=== PATIENT | male | born 1980 | race Caucasian/White ===

== ENCOUNTER 2020-07-06 17:00 | Emergency (ER) | payer OTHER ==
[2020-07-06] MEDS ORDERED: Diphtheria,Pertussis(Acell),Tetanus Vaccine 0.5 ML Syringe IM ONE (18:23)
[2020-07-06] MEDS ORDERED: Lidocaine 1% 10 ML MDV INJECT ONE (18:23)
--- NOTE | 2020-07-06 18:28 | EDM.PDOC ---
ED HPI GENERAL MEDICAL PROBLEM - General Chief Complaint: Laceration Stated Complaint: HEAD LAC Time Seen by Provider: 07/06/20 18:12 Source of Information: Reports: Patient, RN Notes Reviewed History Limitations: Reports: No Limitations - History of Present Illness INITIAL COMMENTS - FREE TEXT/NARRATIVE: Patient is a 39-year-old male who presents to the ED for head laceration. 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 This resulted in a 2 cm linear laceration to the left front side of his scalp. He did not lose consciousness or get knocked out, he felt slightly dizzy at the time of injury along with some lightheadedness. He states he is feeling better now. He does not member the last tetanus vaccine that he had. Patient denies any other sick- like symptoms, fever/chills, cough/shortness of breath, nausea/vomiting/diarrhea. Frontal Head Pain Score (Numeric/FACES): 4 - Related Data Allergies Allergy/AdvReac Type Severity Reaction Status Date / Time No Known Allergies Allergy Verified 07/06/20 18:17 Home Meds: Home Meds . [No Known Home Meds] 07/06/20 [History] Past Medical History - Past Health History Medical/Surgical History: Denies Medical/Surgical History Social & Family History - Tobacco Use Tobacco Use Status *Q: Current Every Day Tobacco User Years of Tobacco use: 20 Packs/Tins Daily: 0.5 - Caffeine Use Caffeine Use: Reports: None - Recreational Drug Use Recreational Drug Use: No ED ROS GENERAL - Review of Systems Review Of Systems: Comprehensive ROS is negative, except as noted in HPI. ED EXAM, SKIN/RASH Exam: See Below Exam Limited By: No Limitations General Appearance: Alert, WD/WN, No Apparent Distress Respiratory/Chest: No Respiratory Distress, Lungs Clear, Normal Breath Sounds, No Accessory Muscle Use, Chest Non-Tender Cardiovascular: Normal Peripheral Pulses, Regular Rate, Rhythm, No Edema Extremities: Normal Inspection, Normal Capillary Refill Neurological: Alert, Oriented, Normal Cognition, No Motor/Sensory Deficits Psychiatric: Normal Affect, Normal Mood Skin: Warm, Dry, Normal Color, No Rash, Wound/Incision (2 cm linear laceration to the left frontal side of his scalp. Right near his hairline.) ED SKIN PROCEDURES - Laceration/Wound Repair Left Upper Face Appearance: Subcutaneous, Linear, Clean Distal NVT: Neuro & Vascular Intact, No Tendon Injury Anesthetic Type: Local Local Anesthesia - Lidocaine (Xylocaine): 1% Plain Local Anesthetic Volume: 2cc Skin Prep: Chlorhexidine (Hibiciens), Saline Exploration/Debridement/Repair: Wound Explored, In a Bloodless Field, Explored to Base, No Foreign Material Found Closed with: Aliyah (7 aliyah) Lac/Wound length In cm: 2 Sterile Dressing Applied: Nurse Tetanus Status Addressed: Yes Complications: No Course - Vital Signs Last Recorded V/S: Last Vital Signs Temp 98.2 F 07/06/20 18:11 Pulse 86 07/06/20 18:11 Resp 20 07/06/20 18:11 BP 138/97 H 07/06/20 18:11 Pulse Ox 97 07/06/20 18:11 - Orders/Labs/Meds Orders: Active Orders 24 hr Category Date Time Status Vaccines to be Administered [RC] PER UNIT ROUTINE Care 07/06/20 18:23 Ordered Meds: Medications Discontinued Medications Generic Name Dose Route Start Last Admin Trade Name Freq PRN Reason Stop Dose Admin Diphtheria/Tetanus/Acell Pertussis 0.5 ml 07/06/20 18:23 Boostrix IM 07/06/20 18:24 .ONCE ONE Lidocaine HCl 10 ml 07/06/20 18:23 Xylocaine 1% INJECT 07/06/20 18:24 ONETIME ONE Departure - Departure Time of Disposition: 18:29 Disposition: Home, Self-Care 01 Condition: Good Clinical Impression: Scalp laceration Qualifiers: Encounter type: initial encounter Qualified Code(s): S01.01XA - Laceration without foreign body of scalp, initial encounter - Discharge Information *PRESCRIPTION DRUG MONITORING PROGRAM REVIEWED*: No *COPY OF PRESCRIPTION DRUG MONITORING REPORT IN PATIENT ABIMAEL: No Instructions: Sutures, Aliyah, or Adhesive Wound Closure Referrals: PCP,None [Primary Care Provider] - Forms: ED Department Discharge Additional Instructions: You have been evaluated in the ED for your laceration. Aliyah will need to stay in for 5 to 7 days You may return to the ED or any clinic for removal. Please keep this area clean and dry, you may cleanse with regular soap and water. No vigorous scrubbing. Please try to avoid submerging the affected area in water for prolonged periods of time until the sutures are removed. Watch out for signs of infection like increased redness, swelling, pain at the laceration site, or if you should develop any fevers or chills. Please return to ED if your symptoms change or worsen. Sepsis Event Note (ED) - Evaluation Sepsis Screening Result: No Definite Risk - Focused Exam Vital Signs: Vital Signs Temp Pulse Resp BP Pulse Ox 07/06/20 18:11 98.2 F 86 20 138/97 H 97 - My Orders Last 24 Hours: My Active Orders 07/06/20 18:23 Vaccines to be Administered [RC] PER UNIT ROUTINE - Assessment/Plan Last 24 Hours: My Active Orders 07/06/20 18:23 Vaccines to be Administered [RC] PER UNIT ROUTINE
== END 2020-07-06 19:26 | disposition home or self-care (01) ==
LOC: JD.ED 17:00
DX: S01.01XA Laceration without foreign body of scalp, initial encounter (principal); F17.210 Nicotine dependence, cigarettes, uncomplicated; Z23 Encounter for immunization; W22.8XXA Striking against or struck by other objects, initial encounter
CPT/HCPCS: 12001; 90471; 90715; 99283; J2001

== ENCOUNTER 2020-07-17 22:55 | Emergency (ER) | payer BC, OTHER ==
--- NOTE | 2020-07-17 23:23 | EDM.PDOCBH ---
ED HPI GENERAL MEDICAL PROBLEM - General Chief Complaint: Drug or Alcohol Abuse Time Seen by Provider: 07/17/20 23:05 Source of Information: Reports: Patient History Limitations: Reports: Altered Mental Status (Confused, lethargic) - History of Present Illness INITIAL COMMENTS - FREE TEXT/NARRATIVE: Mr. Elena a pleasant 39-year-old gentleman who walked into our ED and slumped into the chair at admitting, essentially passing out. He reports that he took "quite a few" [id number] sleeping pills, perhaps about an hour ago, after having an argument with his . He states that he does not know why he took them, and denies doing such a thing in the past. He states that he also drank "a couple" of glasses of [employer]. At present, he complains of feeling "tired and cold". Flory MORGAN was able to contact the patient's , who confirmed that the patient has been drinking today, and that they got into an argument over infidelity. She reported that there were 2 remaining pills of Advil PM in a bottle, however, we do not know how full the bottle was previously. The patient's last saw him at 22:30. It appears that he drove himself to the ED. Here in the ED, the patient's initial BP is found to be elevated at 164/103, with tachycardia of 115 bpm. He is afebrile, saturating 96% on room air. The patient reports that he coughs on occasion, otherwise, he denies having a recent fever, chills, sore throat, ear pain, nasal or sinus congestion, dyspnea, chest pain, palpitations, nausea, vomiting, constipation, diarrhea, abdominal pain, urinary symptoms, recent weight gain or weight loss, recent bloody bowel movements or black bowel movements, recent joint aches, headaches, or rashes. The patient does not have a PCP. He has not received an influenza vaccine this season, and declined an offer to receive one here in the ED. - Related Data Allergies Allergy/AdvReac Type Severity Reaction Status Date / Time No Known Allergies Allergy Verified 07/06/20 18:17 Home Meds: Home Meds . [No Known Home Meds] 07/06/20 [History] Past Medical History - Past Surgical History HEENT Surgical History: Reports: Oral Surgery (dental extractions) Social & Family History - Tobacco Use Tobacco Use Status *Q: Current Every Day Tobacco User Years of Tobacco use: 21 Packs/Tins Daily: 1 - Caffeine Use Caffeine Use: Reports: Coffee, Energy Drinks, Soda - Alcohol Use Alcohol Use History: Yes Alcohol Use Frequency: Socially (occasionally to excess) - Recreational Drug Use Recreational Drug Use: Yes Drug Use in Last 12 Months: No Recreational Drug Type: Reports: Marijuana/Hashish (last smoked in HS) - Living Situation & Occupation Living situation: Reports: , with Spouse, with Family (6 kids) Occupation: Employed ([employer]) ED ROS GENERAL - Review of Systems Review Of Systems: Comprehensive ROS is negative, except as noted in HPI. ED EXAM, BEHAVIORAL HEALTH - Physical Exam Exam: See Below Exam Limited By: No Limitations General Appearance: WD/WN, No Apparent Distress, Lethargic (Easily aroused, but speaks slowly and is confused) Eye Exam: Bilateral Eye: EOMI, Normal Inspection, PERRL Ears: Normal External Exam, Hearing Grossly Normal Nose: Normal Inspection Throat/Mouth: Normal Inspection, Normal Lips, Normal Voice, No Airway Compromise Head: Atraumatic, Normocephalic Neck: Normal Inspection, Full Range of Motion Respiratory/Chest: No Respiratory Distress, Lungs Clear, Normal Breath Sounds, No Accessory Muscle Use Cardiovascular: Normal Peripheral Pulses, Regular Rate, Rhythm, No Edema, No Gallop, No JVD, No Murmur, No Rub GI/Abdominal: Normal Bowel Sounds, Soft, Non-Tender, No Organomegaly, No Distention, No Abnormal Bruit, No Mass Back Exam: Normal Inspection, Full Range of Motion, NT Extremities: Normal Inspection, Normal Range of Motion, Non-Tender, Normal Capillary Refill, No Pedal Edema Neurological: CN II-XII Intact, No Motor/Sensory Deficits, Memory Loss Recent Events Skin Exam: Dry, Intact, Normal color, No rash, Cool (hands) #1 Interpretation EKG Date: 07/17/20 Time: 23:30 Rhythm: Other (Sinus tachycardia) Rate (Beats/Min): 105 [place]: Normal P-Wave: Present QRS: Normal ST-T: Normal QT: Prolonged (QTc 506 ms) Comparison: NA - No Prior EKG COURSE, BEHAVIORAL HEALTH COMP - Course Vital Signs: Last Vital Signs Temp 36.2 C 07/17/20 23:00 Pulse 82 07/18/20 06:11 Resp 16 07/18/20 06:11 BP 138/96 H 07/18/20 06:11 Pulse Ox 99 07/18/20 06:11 Orders, Labs, Meds: Active Orders 24 hr Category Date Time Status EKG Documentation Completion [RC] STAT Care 07/17/20 23:18 Active Sodium Chloride 0.9% [Normal Saline] 1,000 ml Med 07/17/20 23:30 Active IV ASDIRECTED Medication Orders Sodium Chloride (Normal Saline) 1,000 mls @ 150 mls/hr IV ASDIRECTED JEANETTE Last Admin: 07/17/20 23:35 Dose: 150 mls/hr Documented by: RAY Laboratory Tests 07/17/20 07/17/20 07/17/20 Range/Units 23:00 23:00 23:00 WBC 13.01 H (4.23-9.07) K/mm3 RBC 5.18 (4.63-6.08) M/mm3 Hgb 16.7 (13.7-17.5) gm/dl Hct 48.2 (40.1-51.0) % MCV 93.1 H (79.0-92.2) fl MCH 32.2 (25.7-32.2) pg MCHC 34.6 (32.2-35.5) g/dl RDW Std Deviation 44.0 H (35.1-43.9) fL Plt Count 248 (163-337) K/mm3 MPV 10.0 (9.4-12.3) fl Neutrophils % (Manual) 75 H (40-60) % Band Neutrophils % 3 (0-10) % Lymphocytes % (Manual) 16 L (20-40) % Atypical Lymphs % 0 % Monocytes % (Manual) 4 (2-10) % Eosinophils % (Manual) 1 (0.8-7.0) % Basophils % (Manual) 1 (0.2-1.2) Platelet Estimate Adequate Plt Morphology Comment Normal RBC Morph Comment Normal Sodium 140 (136-145) mEq/L Potassium 3.5 (3.5-5.1) mEq/L Chloride 104 (98-107) mEq/L Carbon Dioxide 26 (21-32) mEq/L Anion Gap 13.5 (5-15) BUN 16 (7-18) mg/dL Creatinine 1.3 (0.7-1.3) mg/dL Est Cr Clr Drug Dosing 80.33 mL/min Estimated GFR (MDRD) > 60 (>60) mL/min BUN/Creatinine Ratio 12.3 L (14-18) Glucose 110 H (74-106) mg/dL Calcium 9.2 (8.5-10.1) mg/dL Magnesium 2.2 (1.8-2.4) mg/dl Total Bilirubin 0.3 (0.2-1.0) mg/dL AST 19 (15-37) U/L ALT 38 (16-63) U/L Alkaline Phosphatase 93 (46-116) U/L Total Protein 7.7 (6.4-8.2) g/dl Albumin 4.0 (3.4-5.0) g/dl Globulin 3.7 gm/dL Albumin/Globulin Ratio 1.1 (1-2) TSH 3rd Generation 2.595 (0.358-3.74) uIU/mL Salicylates 5.1 (2.8-20) mg/dL Urine Opiates Screen (TUTHIS=233) Ur Buprenorphine Scrn (CUTOFF=10) Ur Oxycodone Screen (ZCD8BC=264) Urine Methadone Screen (DYY6XX=049) Ur Propoxyphene Screen (UIRRQK=369) Acetaminophen 0 L (10-30) ug/mL Ur Barbiturates Screen (BLUIMY=633) Ur Tricyclics Screen (JKIPVW=723) Ur Phencyclidine Scrn (CUTOFF=25) Ur Amphetamine Screen (NBTWFS=948) U Methamphetamines Scrn (JKIOKI=849) U Benzodiazepines Scrn (VOQOMF=889) U Cocaine Metab Screen (HFLCRL=422) U Marijuana (THC) Screen (CUTOFF=50) Ethyl Alcohol 0.05 (0.00) gm% SARS-CoV-2 RNA (SANCHEZ) (NEGATIVE) 07/18/20 07/18/20 07/18/20 Range/Units 00:05 00:15 02:04 WBC (4.23-9.07) K/mm3 RBC (4.63-6.08) M/mm3 Hgb (13.7-17.5) gm/dl Hct (40.1-51.0) % MCV (79.0-92.2) fl MCH (25.7-32.2) pg MCHC (32.2-35.5) g/dl RDW Std Deviation (35.1-43.9) fL Plt Count (163-337) K/mm3 MPV (9.4-12.3) fl Neutrophils % (Manual) (40-60) % Band Neutrophils % (0-10) % Lymphocytes % (Manual) (20-40) % Atypical Lymphs % % Monocytes % (Manual) (2-10) % Eosinophils % (Manual) (0.8-7.0) % Basophils % (Manual) (0.2-1.2) Platelet Estimate Plt Morphology Comment RBC Morph Comment Sodium (136-145) mEq/L Potassium (3.5-5.1) mEq/L Chloride (98-107) mEq/L Carbon Dioxide (21-32) mEq/L Anion Gap (5-15) BUN (7-18) mg/dL Creatinine (0.7-1.3) mg/dL Est Cr Clr Drug Dosing mL/min Estimated GFR (MDRD) (>60) mL/min BUN/Creatinine Ratio (14-18) Glucose (74-106) mg/dL Calcium (8.5-10.1) mg/dL Magnesium (1.8-2.4) mg/dl Total Bilirubin (0.2-1.0) mg/dL AST (15-37) U/L ALT (16-63) U/L Alkaline Phosphatase (46-116) U/L Total Protein (6.4-8.2) g/dl Albumin (3.4-5.0) g/dl Globulin gm/dL Albumin/Globulin Ratio (1-2) TSH 3rd Generation (0.358-3.74) uIU/mL Salicylates (2.8-20) mg/dL Urine Opiates Screen Negative (SOBBGX=327) Ur Buprenorphine Scrn Negative (CUTOFF=10) Ur Oxycodone Screen Negative (USO1OO=879) Urine Methadone Screen Negative (JHX0DP=301) Ur Propoxyphene Screen Negative (DSQCXX=102) Acetaminophen 0 L (10-30) ug/mL Ur Barbiturates Screen Negative (STSAKK=181) Ur Tricyclics Screen Negative (MUHWRL=694) Ur Phencyclidine Scrn Negative (CUTOFF=25) Ur Amphetamine Screen Negative (GEYVMR=752) U Methamphetamines Scrn Negative (NRCUWC=638) U Benzodiazepines Scrn Negative (JCCITO=092) U Cocaine Metab Screen Negative (DCNJAK=706) U Marijuana (THC) Screen Negative (CUTOFF=50) Ethyl Alcohol (0.00) gm% SARS-CoV-2 RNA (SANCHEZ) Negative (NEGATIVE) 07/18/20 Range/Units 02:04 WBC (4.23-9.07) K/mm3 RBC (4.63-6.08) M/mm3 Hgb (13.7-17.5) gm/dl Hct (40.1-51.0) % MCV (79.0-92.2) fl MCH (25.7-32.2) pg MCHC (32.2-35.5) g/dl RDW Std Deviation (35.1-43.9) fL Plt Count (163-337) K/mm3 MPV (9.4-12.3) fl Neutrophils % (Manual) (40-60) % Band Neutrophils % (0-10) % Lymphocytes % (Manual) (20-40) % Atypical Lymphs % % Monocytes % (Manual) (2-10) % Eosinophils % (Manual) (0.8-7.0) % Basophils % (Manual) (0.2-1.2) Platelet Estimate Plt Morphology Comment RBC Morph Comment Sodium (136-145) mEq/L Potassium (3.5-5.1) mEq/L Chloride (98-107) mEq/L Carbon Dioxide (21-32) mEq/L Anion Gap (5-15) BUN (7-18) mg/dL Creatinine (0.7-1.3) mg/dL Est Cr Clr Drug Dosing mL/min Estimated GFR (MDRD) (>60) mL/min BUN/Creatinine Ratio (14-18) Glucose (74-106) mg/dL Calcium (8.5-10.1) mg/dL Magnesium (1.8-2.4) mg/dl Total Bilirubin (0.2-1.0) mg/dL AST (15-37) U/L ALT (16-63) U/L Alkaline Phosphatase (46-116) U/L Total Protein (6.4-8.2) g/dl Albumin (3.4-5.0) g/dl Globulin gm/dL Albumin/Globulin Ratio (1-2) TSH 3rd Generation (0.358-3.74) uIU/mL Salicylates 4.4 (2.8-20) mg/dL Urine Opiates Screen (BUHRBF=445) Ur Buprenorphine Scrn (CUTOFF=10) Ur Oxycodone Screen (FUP3TB=577) Urine Methadone Screen (BOG5EA=777) Ur Propoxyphene Screen (VFDXDR=411) Acetaminophen (10-30) ug/mL Ur Barbiturates Screen (NNVNHT=719) Ur Tricyclics Screen (SUKLWM=426) Ur Phencyclidine Scrn (CUTOFF=25) Ur Amphetamine Screen (BKXQDY=935) U Methamphetamines Scrn (PTKTMM=713) U Benzodiazepines Scrn (UPYLRJ=215) U Cocaine Metab Screen (IHKLNP=013) U Marijuana (THC) Screen (CUTOFF=50) Ethyl Alcohol (0.00) gm% SARS-CoV-2 RNA (SANCHEZ) (NEGATIVE) Medications Generic Name Dose Route Start Last Admin Trade Name Freq PRN Reason Stop Dose Admin Sodium Chloride 1,000 mls @ 150 mls/hr 07/17/20 23:30 07/17/20 23:35 Normal Saline IV 150 mls/hr ASDIRECTED JEANETTE Administration Medical Clearance: 07/17/20 23:20 As above, the patient appears to have taken an overdose of sleeping pills, likely diphenhydramine, but also possibly acetaminophen, along with alcohol, perhaps an hour ago, although the timing is not yet clear. He denies ingesting any other drugs. We think he walked here to the ED. He states that he is "tired and cold", and while he has no focal neurologic deficits, he is confused and a poor historian. His initial BP is found to be elevated, and he is tachycardic. I have ordered a work-up that includes several blood tests, a urine drug screen, an ECG, and, because he will need to either be admitted or transferred, a swab for the SARS-CoV-2 virus. In the meantime, the patient will be given IV fluid. 07/18/20 00:46 The patient's CBC is remarkable for mild leukocytosis of 13.01 with 3% bandemia, and the remainder of his CBC being unremarkable. His CMP is remarkable for slight hyperglycemia of 110, and is otherwise unremarkable. His magnesium level is within normal limits at 2.2. His TSH is within normal limits at 2.595. His salicylate level is within normal limits at 5.1. His acetaminophen level is 0. His EtOH level is mildly elevated at 0.05. His urine drug screen is completely negative. His swab for the SARS-CoV-2 virus has not yet resulted. I have ordered a repeat salicylate level and acetaminophen level to be drawn at 02:00. 07/18/20 03:23 The patient's swab for the SARS-CoV-2 virus has returned negative. His repeat salicylate level is within normal limits at 4.4. His repeat acetaminophen level is still 0. Without a significantly elevated salicylate level, the patient likely took only a couple Advil PMs. We will let him sleep until the morning. 07/18/20 06:41 The patient has been sleeping soundly all night. I woke him. He does not recall how he got here (his truck is in the ED parking lot). I will discharge him home. Departure - Departure Time of Disposition: 06:42 Disposition: Home, Self-Care 01 Condition: Good Clinical Impression: Intoxication by drug - Discharge Information *PRESCRIPTION DRUG MONITORING PROGRAM REVIEWED*: Not Applicable *COPY OF PRESCRIPTION DRUG MONITORING REPORT IN PATIENT ABIMAEL: Not Applicable Referrals: PCP,None [Primary Care Provider] - Forms: ED Department Discharge Additional Instructions: You were seen in the emergency room after drinking alcohol and taking an unknown number of [id number] Advil PM pills. Work-up in the ER included numerous blood tests, a urine drug screen, a swab for the SARS-CoV-2 virus, and an ECG. Your work-up found your alcohol level to be modestly elevated at 0.05. The remainder of your work-up was unremarkable. Based on your blood test, we estimate that you did not take a significant number of Advil PM pills. You were allowed to sleep overnight in the ER. If any other problems, please do not hesitate to return to the ER. Sepsis Event Note (ED) - Evaluation Sepsis Screening Result: No Definite Risk - Focused Exam Vital Signs: Vital Signs Temp Pulse Resp BP Pulse Ox 07/18/20 06:11 82 16 138/96 H 99 07/18/20 03:29 78 16 134/75 95 07/18/20 02:31 95 16 132/92 H 07/18/20 00:24 103 H 16 149/99 H 95 07/17/20 23:00 36.2 C 115 H 20 164/103 H 96 - My Orders Last 24 Hours: My Active Orders 07/17/20 23:18 EKG Documentation Completion [RC] STAT 07/17/20 23:30 Sodium Chloride 0.9% [Normal Saline] 1,000 ml IV ASDIRECTED - Assessment/Plan Last 24 Hours: My Active Orders 07/17/20 23:18 EKG Documentation Completion [RC] STAT 07/17/20 23:30 Sodium Chloride 0.9% [Normal Saline] 1,000 ml IV ASDIRECTED
[2020-07-17] MEDS ORDERED: Sodium Chloride 0.9% 1,000 ML IV SCH (23:30)
[2020-07-17 23:51] LABS: ACETAMINOPHEN 0 ug/mL (10-30)
== END 2020-07-18 07:06 | disposition home or self-care (01) ==
LOC: JD.ED 22:55
DX: R41.82 Altered mental status, unspecified (principal); T39.315A Adverse effect of propionic acid derivatives, initial encounter; F17.210 Nicotine dependence, cigarettes, uncomplicated; R00.0 Tachycardia, unspecified; Z20.822 Contact with and (suspected) exposure to COVID-19
CPT/HCPCS: 36415; 80053; 80143; 80179; 80306; 80307; 83735; 84443; 85007; 85027; 87635; 93005; 99284; J7030; 93010; U0002

== ENCOUNTER 2021-03-11 18:17 | Emergency (ER) | payer BC ==
[2021-03-11] MEDS ORDERED: Ondansetron 4 MG/2 ML SDV IVPUSH ONE (18:46)
[2021-03-11] MEDS ORDERED: Sodium Chloride 0.9% 1,000 ML IV SCH (19:00)
--- NOTE | 2021-03-11 19:06 | EDM.PDOC ---
ED HPI GENERAL MEDICAL PROBLEM - General Chief Complaint: Abdominal Pain Stated Complaint: L SIDE ABDOMINAL PAIN Time Seen by Provider: 03/11/21 18:46 Source of Information: Reports: Patient, RN Notes Reviewed History Limitations: Reports: No Limitations - History of Present Illness INITIAL COMMENTS - FREE TEXT/NARRATIVE: Patient is a 40-year-old male who presents to the ER for evaluation of his left lower quadrant abdominal pain. Patient notes he has had no prior abdominal surgeries. States this has been present for the last 3 days or so, it seems to be intermittent, but worsened this morning at around 3 AM. He took 2 tablets of ibuprofen at that time, and states he took the edge off but did not really seem to make the pain relent much at all. He denying any fevers or chills, cough or shortness of breath, nausea/vomiting/diarrhea. States that his last bowel movement was yesterday morning, but and also notes that he did not really eat much yesterday, he did try to take some MiraLAX this morning, along with increase his fluid hydration and has not had a bowel movement since. States that he is having no urinary symptoms as well. He has no regular care provider. States that he last ate roughly 1 hour ago. Patient states that movement seems to make the pain worse, and when he stands straight up this seems to make it worse. Left Abdominal Pain Score (Numeric/FACES): 5 - Related Data Allergies Allergy/AdvReac Type Severity Reaction Status Date / Time No Known Allergies Allergy Verified 03/11/21 18:26 Home Meds: Home Meds Amoxicillin/Clavulanate K [Augmentin 875-125 MG] 1 tab PO BID #14 tablet 03/11/21 [Rx] buPROPion HCL [Bupropion Xl] 150 mg PO DAILY 03/11/21 [History] Past Medical History - Past Health History Medical/Surgical History: Denies Medical/Surgical History - Past Surgical History HEENT Surgical History: Reports: Oral Surgery Social & Family History - Tobacco Use Tobacco Use Status *Q: Current Every Day Tobacco User Years of Tobacco use: 20 Packs/Tins Daily: 1 - Caffeine Use Caffeine Use: Reports: None - Recreational Drug Use Recreational Drug Use: No - Living Situation & Occupation Living situation: Reports: , with Spouse, with Family (6 kids) Occupation: Employed (Formerly [employer]) ED ROS GENERAL - Review of Systems Review Of Systems: Comprehensive ROS is negative, except as noted in HPI. ED EXAM, GI/ABD - Physical Exam Exam: See Below Exam Limited By: No Limitations General Appearance: Alert, WD/WN, No Apparent Distress Respiratory/Chest: No Respiratory Distress, Lungs Clear, Normal Breath Sounds, No Accessory Muscle Use, Chest Non-Tender Cardiovascular: Normal Peripheral Pulses, Regular Rate, Rhythm, No Edema GI/Abdominal Exam: Normal Bowel Sounds, Soft, No Distention, No Mass, Tender (LLQ pain) Extremities: Normal Inspection, Normal Capillary Refill Neurological: Alert, Oriented, Normal Cognition, No Motor/Sensory Deficits Psychiatric: Normal Affect, Normal Mood Skin Exam: Warm, Dry, Intact, Normal Color, No Rash Course - Vital Signs Last Recorded V/S: Last Vital Signs Temp 97.3 F 03/11/21 18:25 Pulse 92 03/11/21 18:25 Resp 18 03/11/21 18:25 BP 147/78 H 03/11/21 18:25 Pulse Ox 94 L 03/11/21 18:25 - Orders/Labs/Meds Orders: Active Orders 24 hr Category Date Time Status Peripheral IV Care [RC] . DIRECTED Care 03/11/21 18:46 Ordered Abdomen Pelvis w Cont [CT] Stat Exams 03/11/21 18:46 Ordered UA W/MICROSCOPIC [URIN] Stat Lab 03/11/21 18:46 Ordered Sodium Chloride 0.9% [Normal Saline] 1,000 ml Med 03/11/21 19:00 Ordered IV ASDIRECTED Sodium Chloride 0.9% [Saline Flush] Med 03/11/21 18:46 Ordered 10 ml FLUSH ASDIRECTED PRN Peripheral IV Insertion Adult [OM.PC] Stat Oth 03/11/21 18:46 Ordered Medication Orders Sodium Chloride (Normal Saline) 1,000 mls @ 999 mls/hr IV ASDIRECTED JEANETTE Last Admin: 03/11/21 19:11 Dose: 999 mls/hr Documented by: ARMANI Sodium Chloride (Sodium Chloride 0.9% 10 Ml Syringe) 10 ml FLUSH ASDIRECTED PRN PRN Reason: Keep Vein Open Last Admin: 03/11/21 20:24 Dose: 10 ml Documented by: Admin: 03/11/21 19:11 Dose: 10 ml Documented by: ARMANI Labs: Laboratory Tests 03/11/21 03/11/21 Range/Units 18:35 18:35 WBC 10.79 H (4.23-9.07) K/mm3 RBC 4.98 (4.63-6.08) M/mm3 Hgb 16.2 (13.7-17.5) gm/dl Hct 46.1 (40.1-51.0) % MCV 92.6 H (79.0-92.2) fl MCH 32.5 H (25.7-32.2) pg MCHC 35.1 (32.2-35.5) g/dl RDW Std Deviation 45.0 H (35.1-43.9) fL Plt Count 225 (163-337) K/mm3 MPV 9.9 (9.4-12.3) fl Neut % (Auto) 70.0 H (34.0-67.9) % Lymph % (Auto) 20.9 L (21.8-53.1) % [place] % (Auto) 6.5 (5.3-12.2) % Eos % (Auto) 2.0 (0.8-7.0) Baso % (Auto) 0.3 (0.1-1.2) % Neut # (Auto) 7.55 H (1.78-5.38) K/mm3 Lymph # (Auto) 2.26 (1.32-3.57) K/mm3 [place] # (Auto) 0.70 (0.30-0.82) K/mm3 Eos # (Auto) 0.22 (0.04-0.54) K/mm3 Baso # (Auto) 0.03 (0.01-0.08) K/mm3 Sodium 141 (136-145) mEq/L Potassium 4.0 (3.5-5.1) mEq/L Chloride 105 (98-107) mEq/L Carbon Dioxide 28 (21-32) mEq/L Anion Gap 12.0 (5-15) BUN 16 (7-18) mg/dL Creatinine 1.3 (0.7-1.3) mg/dL Est Cr Clr Drug Dosing 69.53 mL/min Estimated GFR (MDRD) > 60 (>60) mL/min BUN/Creatinine Ratio 12.3 L (14-18) Glucose 142 H (70-99) mg/dL Calcium 8.7 (8.5-10.1) mg/dL Total Bilirubin 0.6 (0.2-1.0) mg/dL AST 18 (15-37) U/L ALT 38 (16-63) U/L Alkaline Phosphatase 76 (46-116) U/L C-Reactive Protein <0.2 (<1.0) mg/dL Total Protein 7.2 (6.4-8.2) g/dl Albumin 3.9 (3.4-5.0) g/dl Globulin 3.3 gm/dL Albumin/Globulin Ratio 1.2 (1-2) Lipase 85 (73-393) U/L Meds: Medications Generic Name Dose Route Start Last Admin Trade Name Freq PRN Reason Stop Dose Admin Sodium Chloride 1,000 mls @ 999 mls/hr 03/11/21 19:00 03/11/21 19:11 Normal Saline IV 999 mls/hr ASDIRECTED JEANETTE Administration Sodium Chloride 10 ml 03/11/21 18:46 03/11/21 20:24 Sodium Chloride 0.9% 10 Ml Syringe FLUSH 10 ml ASDIRECTED PRN Administration Keep Vein Open Discontinued Medications Generic Name Dose Route Start Last Admin Trade Name Freq PRN Reason Stop Dose Admin Diatrizoate Meglum/Diatrizoate Sod 120 ml 03/11/21 19:56 03/11/21 20:24 Diatrizoate Meglumine/Diatrizoate Sodium 37% 120 Ml Bottle PO 03/11/21 19:57 120 ml ONETIME ONE Administration Hydromorphone HCl 0.5 mg 03/11/21 19:46 03/11/21 20:05 Hydromorphone 0.5 Mg/0.5 Ml Syringe IVPUSH 03/11/21 19:47 0.5 mg ONETIME ONE Administration Iopamidol 50 ml 03/11/21 19:56 03/11/21 20:23 Iopamidol 612 Mg/Ml 50 Ml Sdv IVPUSH 03/11/21 19:57 50 ml ONETIME ONE Administration Iopamidol 100 ml 03/11/21 19:56 03/11/21 20:23 Iopamidol 612 Mg/Ml 100 Ml Bottle IVPUSH 03/11/21 19:57 100 ml ONETIME ONE Administration Ondansetron HCl 4 mg 03/11/21 18:46 03/11/21 19:11 Ondansetron 4 Mg/2 Ml Sdv IVPUSH 03/11/21 18:47 4 mg ONETIME ONE Administration Sodium Chloride 10 ml 03/11/21 19:56 Sodium Chloride 0.9% 10 Ml Sdv FLUSH 03/11/21 19:57 ONETIME ONE - Re-Assessments/Exams Free Text/Narrative Re-Assessment/Exam: 03/11/21 19:06 Patient presents to the ER for his abdominal discomfort, we will go ahead and get abdomen pelvis CT with IV and oral contrast, we will get some baseline labs, and give him some Zofran and fluids initially. Patient was offered pain medication but declined at this time. 03/11/21 21:09 Laboratory evaluation is essentially unremarkable, CT does demonstrate circumferential rectal wall thickening, clinical correlation is recommended. He does have some stool within his abdomen, consistent with constipation, the oral contrast should provide a laxative effect, I will have him follow-up with Dr. Ibarra, next week for ongoing management. We will go ahead and give him her clinic number so he can make an appointment for evaluation, and hopefully colonoscopy. Departure - Departure Time of Disposition: 21:11 Disposition: Home, Self-Care 01 Condition: Good Clinical Impression: Left lower quadrant abdominal pain - Discharge Information *PRESCRIPTION DRUG MONITORING PROGRAM REVIEWED*: No *COPY OF PRESCRIPTION DRUG MONITORING REPORT IN PATIENT ABIMAEL: No Prescriptions: Amoxicillin/Clavulanate K [Augmentin 875-125 MG] 1 tab PO BID #14 tablet Instructions: Abdominal Pain, Adult, [id number] Referrals: Margot Reyes MD [Physician] - 1 Week (Please call Sunday or Sunday for clinic appointment for further evaluation of rectal wall thickening.) Forms: ED Department Discharge Additional Instructions: You were evaluated in the ER today for your left lower quadrant abdominal pain. Your CT demonstrated some circumferential bowel wall thickening, that will need further investigation by colonoscopy. You have been referred to general surgeon, Dr. Ibarra in the [facility] for ongoing management of this. Please call [phone], on Sunday morning, to obtain an appointment to see her in clinic for further evaluation. In the meantime, you did have quite a bit of stool throughout your colon as well, and the oral contrast should provide somewhat of a laxative effect. You have been started on oral antibiotics, Augmentin for suspected bacterial infection, this was recommended by general surgeon, Dr. Ibarra. This medication was electronically sent to the [place] [facility] [employer]. Do not hesitate to return to the ER at any time if your symptoms should change or worsen. This would include fever, worsening pain, or any sort of nausea/vomiting/diarrhea. Sepsis Event Note (ED) - Focused Exam Vital Signs: Vital Signs Temp Pulse Resp BP Pulse Ox 03/11/21 18:25 97.3 F 92 18 147/78 H 94 L - My Orders Last 24 Hours: My Active Orders 03/11/21 18:46 Peripheral IV Care [RC] . DIRECTED Abdomen Pelvis w Cont [CT] Stat UA W/MICROSCOPIC [URIN] Stat Sodium Chloride 0.9% [Saline Flush] 10 ml FLUSH ASDIRECTED PRN Peripheral IV Insertion Adult [OM.PC] Stat 03/11/21 19:00 Sodium Chloride 0.9% [Normal Saline] 1,000 ml IV ASDIRECTED - Assessment/Plan Last 24 Hours: My Active Orders 03/11/21 18:46 Peripheral IV Care [RC] . DIRECTED Abdomen Pelvis w Cont [CT] Stat UA W/MICROSCOPIC [URIN] Stat Sodium Chloride 0.9% [Saline Flush] 10 ml FLUSH ASDIRECTED PRN Peripheral IV Insertion Adult [OM.PC] Stat 03/11/21 19:00 Sodium Chloride 0.9% [Normal Saline] 1,000 ml IV ASDIRECTED
[2021-03-11] MEDS: Sodium Chloride 0.9% 10 ML Syringe FLUSH PRN ×2 (19:11→20:24)
[2021-03-11] MEDS ORDERED: HYDROmorphone 0.5 MG/0.5 ML Syringe IVPUSH ONE (19:46)
[2021-03-11] MEDS ORDERED: Iopamidol 612 MG/ML 50 ML SDV IVPUSH ONE (19:56)
[2021-03-11] MEDS ORDERED: Iopamidol 612 MG/ML 100 ML Bottle IVPUSH ONE (19:56)
[2021-03-11] MEDS ORDERED: Diatrizoate Meglumine/Diatrizoate Sodium 37% 120 ML Bottle PO ONE (19:56)
[2021-03-11] MEDS ORDERED: Sodium Chloride 0.9% 10 ML SDV FLUSH ONE (19:56)
--- NOTE | 2021-03-13 08:53 | CT ---
CT abdomen and pelvis Technique: Multiple axial sections were obtained from above the dome of the diaphragm inferiorly through the pubic symphysis. Intravenous and oral contrast were utilized. Delayed images were then obtained through the bladder. Reconstructed coronal and sagittal images were obtained. Comparison: No prior abdominal imaging is available. Findings: Visualized lung bases show mild dependent atelectasis. Liver contains no focal parenchymal abnormality. Spleen size is normal. Adrenal glands show no nodule. Pancreas shows no discrete abnormality. Gallbladder contains no calcified gallstones. Kidneys show symmetric contrast enhancement without hydronephrosis or mass. Delayed images show contrast within the distal ureters and the bladder. Abdominal aorta shows no aneurysm. No retroperitoneal adenopathy or mesenteric abnormalities are seen. Appendix is seen which is normal. No pelvic mass or adenopathy is appreciated. Rectal wall shows diffuse thickening. No other bowel abnormality is appreciated. Bone window settings were reviewed which show disc space narrowing and vacuum phenomena within the L5-S1 disc. No acute osseous abnormality is appreciated. Impression: 1. Wall thickening within the rectum. Please correlate clinically. 2. Other incidental findings as noted above. Diagnostic code #3 I agree with preliminary report from [facility], finalized on 03/11/21, 10:04 PM CDT, code 1
== END 2021-03-11 21:45 | disposition home or self-care (01) ==
LOC: JD.ED 18:17
DX: R10.32 Left lower quadrant pain (principal); Z72.0 Tobacco use
CPT/HCPCS: 36415; 74177; 80053; 83690; 85025; 86140; 96374; 96375; 99284; J1170; J2405; J7030; Q9963; Q9967

== ENCOUNTER 2021-10-03 12:43 | Emergency (ER) | payer BC ==
[2021-10-03] MEDS ORDERED: Sodium Chloride 0.9% 10 ML Syringe FLUSH PRN (13:16)
[2021-10-03] MEDS ORDERED: Sodium Chloride 0.9% 1,000 ML IV SCH (13:30)
== END 2021-10-03 16:00 | disposition home or self-care (01) ==
LOC: JD.ED 12:43
DX: R07.89 Other chest pain (principal); R55 Syncope and collapse; Z72.0 Tobacco use
CPT/HCPCS: 36415; 71045; 80053; 84484; 85025; 93005; 99285; J7030; 93010

== ENCOUNTER 2022-01-09 17:13 | Emergency (ER) | payer BC ==
[2022-01-09] MEDS ORDERED: Lidocaine 1% 10 ML MDV INJECT ONE (18:30)
== END 2022-01-09 19:45 | disposition home or self-care (01) ==
LOC: JD.ED 17:13
DX: S51.811A Laceration without foreign body of right forearm, initial encounter (principal); F17.210 Nicotine dependence, cigarettes, uncomplicated; W26.8XXA Contact with other sharp object(s), not elsewhere classified, initial encounter; Y99.0 Civilian activity done for income or pay
CPT/HCPCS: 12001; 99282

== ENCOUNTER 2022-05-11 11:42 | Emergency (ER) | payer OTHER, BC ==
[2022-05-11] MEDS ORDERED: Acetaminophen 325 MG Tab PO ONE (11:59)
[2022-05-11] MEDS ORDERED: Lidocaine 1% 10 ML MDV INJECT ONE (12:54)
== END 2022-05-11 13:36 | disposition home or self-care (01) ==
LOC: JD.ED 11:42
DX: S01.81XA Laceration without foreign body of other part of head, initial encounter (principal); W22.09XA Striking against other stationary object, initial encounter; Y99.0 Civilian activity done for income or pay
CPT/HCPCS: 12011; 70450; 99283; A9270; 99282

== ENCOUNTER 2024-03-28 03:45 | Emergency (ER) | payer BC ==
[2024-03-28 04:07] LABS: BASOPHILS PERCENT AUTO 0.6 % (0.0-1.0); EOSINOPHILS ABSOLUTE AUTO 0.2 K/mm3 (0.0-0.4); EOSINOPHILS PERCENT AUTO 3.2 % (0.0-6.0); HEMATOCRIT 43.1 % (42.0-52.0); HEMOGLOBIN 15.3 gm/dl (14.0-18.0); IMMATURE GRAN ABSOLUTE AUTO 0.01 K/mm3 (0.00-0.05); IMMATURE GRAN PERCENT AUTO 0.2 % (0.0-0.4); LYMPHOCYTES ABSOLUTE AUTO 2.9 K/mm3 (1.0-4.8); MEAN CORPUSCULAR HEMOGLOBIN 32.3 pg (28.0-32.0); MEAN CORPUSCULAR HGB CONC 35.5 g/dl (32.0-36.0); MEAN CORPUSCULAR VOLUME 91.1 fl (83.0-99.0); MEAN PLATELET VOLUME 9.7 fl (9.4-12.4); MONOCYTES ABSOLUTE AUTO 0.5 K/mm3 (0.0-0.8); NEUTROPHILS ABSOLUTE AUTO 2.9 K/mm3 (1.8-7.7); PLATELET COUNT,PLT 205 K/mm3 (150-400); RED BLOOD CELL COUNT 4.73 M/mm3 (4.52-5.90); WHITE BLOOD CELL COUNT,WBC 6.66 K/mm3 (3.9-11.3)
[2024-03-28 04:22] LABS: A/G RATIO 1.3 (1-2); ALBUMIN 3.5 g/dl (3.4-5.0); ANION GAP 14.3 (5-15); BILIRUBIN TOTAL 0.4 mg/dL (0.2-1.0); BUN/CREATININE RATIO 13.3 (14-18); CALCIUM 8.4 mg/dL (8.5-10.1); CREATININE 1.2 mg/dL (0.7-1.3); EST CRCL DRUG DOSING (CG) 81.01 mL/min; ETHANOL BLOOD MEDICAL 0.02 gm% (0.00); POTASSIUM,K 3.3 mEq/L (3.5-5.1); PROTEIN TOTAL,TP 6.2 g/dl (6.4-8.2)
== END 2024-03-28 06:34 | disposition home or self-care (01) ==
LOC: JD.ED 03:45
DX: R55 Syncope and collapse (principal); Z79.899 Other long term (current) drug therapy
CPT/HCPCS: 36415; 70450; 70450-26; 80053; 80307; 85025; 93005; 93010; 99282; 99285

== ENCOUNTER 2024-08-31 12:03 | Emergency (ER) | payer BC ==
[2024-08-31] MEDS: Ketorolac 10 MG Tab PO ONE (15:19)
[2024-08-31] MEDS: Cyclobenzaprine 10 MG Tab PO ONE (15:19)
== END 2024-08-31 16:15 | disposition home or self-care (01) ==
LOC: JD.ED 12:03
DX: M54.50 Low back pain, unspecified (principal); I10 Essential (primary) hypertension; F17.210 Nicotine dependence, cigarettes, uncomplicated; Z79.899 Other long term (current) drug therapy
CPT/HCPCS: 72131; 99283; A9270